=== PATIENT | female | born 1955 | race Caucasian/White ===

== ENCOUNTER 2018-07-01 13:15 | Inpatient (IN) ==
--- NOTE | 2018-07-01 13:20 | Emergency Department Note ---
Disposition Clinical Impression: Recurrent falls, Weakness, Dyspnea on exertion Disposition: Admitted As Inpatient Condition: Fair SOB HPI - General Chief Complaint: ED General Medical Stated Complaint: increasing sob, fall Time Seen by Provider: 07/01/18 13:20 Source: family, EMS Mode of arrival: EMS Limitations: no limitations Nursing Notes Reviewed: Yes Vital Signs Reviewed: Yes - History of Present Illness Patient reports that she has fallen twice today. Both times she has called EMS. EMS helped her up earlier in the day but have brought her in after second episode. She states she had gone out to her car in the passenger side but was unable to get in with her dyspnea on exertion. She tripped on a step on the way back to the house and EMS were again contacted. She is on oxygen at night and as needed during the day. She did not have oxygen when she went to the car and had more shortness of breath and was saturating into the 80s. She reports dyspnea on exertion. She denies increased cough, fevers or chills. She denies chest pain or palpitations. She denies any new lower extremity swelling or injury. She has some chronic swelling as well as scar to her right leg from previous surgical procedures. She denies any change in medicine other than starting medicines for sore right shoulder. She was seen days ago for another fall and is wearing a sling. X-rays of the shoulder were negative. She comes in today stating "I want to get into rehabilitation". Pt Subjective Complaint: shortness of breath (Weakness, recurrent falls) Onset (ago): hour(s) Severity: mild, moderate Consistency/Duration: intermittent Improves with: rest Worsens with: exertion Associated symptoms: Denies: chest pain, pain with inspiration, fever, cough, wheezing, sputum production, orthopnea, lower extremity pain, polyuria, polydipsia, parasthesias, palpitations, hemoptysis, diaphoresis, nausea/vomiting, syncope, abdominal pain, rash Treatment prior to arrival: oxygen Cough present: No - Related Data Home oxygen amount: 2 liters (At night) Home Medications Medication Instructions Recorded Confirmed Acetaminophen [Non-Aspirin] 650 mg PO BID PRN 07/01/18 07/01/18 Ascorbate Calcium [Vitamin C] 500 mg PO DAILY 07/01/18 07/01/18 Atorvastatin [Lipitor] 20 mg PO HS 07/01/18 07/01/18 Cholecalciferol (Vitamin D3) 2,000 unit PO DAILY 07/01/18 07/01/18 [Vitamin D] Duloxetine HCl [Cymbalta] 60 mg PO DAILY 07/01/18 07/01/18 Escitalopram [Lexapro] 20 mg PO DAILY 07/01/18 07/01/18 Fluconazole [Diflucan] 150 mg PO DAILY 07/01/18 07/01/18 Furosemide [Lasix] 40 mg PO DAILY 07/01/18 07/01/18 Gabapentin [Neurontin] 600 mg PO BID 07/01/18 07/01/18 Levothyroxine Sodium [Synthroid] 200 mcg PO DAILY 07/01/18 07/01/18 Quetiapine Fumarate [SEROquel] 100 mg PO HS 07/01/18 07/01/18 Quetiapine Fumarate [SEROquel] 300 mg PO BID 07/01/18 07/01/18 RX: Diclofenac Potassium 50 mg PO BID 07/01/18 07/01/18 RX: Docusate [Colace] 100 mg PO BID PRN 07/01/18 07/01/18 RX: Ferrous Sulfate 325 mg PO TID 07/01/18 07/01/18 RX: Nystatin Cream [Mycostatin 1 appl TP BID 07/01/18 07/01/18 Cream] RX: Ondansetron HCl 4 mg PO Q6H PRN 07/01/18 07/01/18 RX: Polyethylene Glycol 3350 17 gm PO BID 07/01/18 07/01/18 [MiraLAX] RX: clonazePAM [Clonazepam] 1.5 mg PO HS 07/01/18 07/01/18 Allergies Allergy/AdvReac Type Severity Reaction Status Date / Time ibuprofen [From Motrin] AdvReac Depression Verified 06/29/18 11:30 All systems ED: reviewed and negative except as stated. Past Medical History - Past Medical History Attestation: Yes The following information was validated with the patient. Source: patient, old records reviewed, obtained from family, nursing notes re viewed Medical history: Reports: arthritis, DVT, fibromyalgia, hyperlipidemia, thyroid disease, other (Anemia, morbid obesity) Surgical history: Reports: orthopedic, other (4 right legs surgeries) Psychiatric history: Reports: anxiety, depression - Social History Smoking Status: Former smoker Smokeless Tobacco Status: No Alcohol use: Reports: none Drug use: Reports: none Physical Exam - General Limitations: no limitations General appearance: alert, in no apparent distress - Head Head exam: atraumatic, normocephalic, normal inspection - Eye Eye exam: Present: normal appearance, PERRL, EOMI. Absent: conjunctival injection - ENT ENT exam: normal exam, normal oropharynx, mucous membranes moist - Neck Neck exam: Present: normal inspection, full ROM, trachea midline. Absent: tenderness - Chest Chest inspection: Present: normal inspection, symmetric chest wall rise. Absent: tenderness - Respiratory Respiratory exam: Present: normal lung sounds bilaterally. Absent: respiratory distress, wheezes, prolonged expiratory phase - Cardiovascular Cardiovascular exam: Present: regular rate, normal rhythm, normal heart sounds. Absent: tachycardia - Abdominal Exam Abdominal exam: Present: soft, Non-Tender, normal bowel sounds. Absent: tenderness, distention, guarding, rebound, rigidity - Extremities Exam Extremities exam: Present: full ROM, normal capillary refill, pedal edema, other (Patient has some chronic erythema to her legs that she states is no different than usual. The legs are not tender or warm.). Absent: tenderness, calf tenderness - Expanded Lower Extremity Exam Neurovascular/Tendon exam: Present: normal capillary refill. Absent: motor deficit, sensory deficit, tendon deficit Gait: not tested/not observed - Neurological Exam Neurological exam: Present: alert, oriented X3 - Psychiatric Psychiatric exam: Present: normal affect, normal mood - Skin Skin exam: Present: warm, dry, intact, normal color. Absent: cyanosis, diaphoresis, pallor Course Course Narrative: With return of all lab, EKG and imaging, care is discussed with Dr. Bennett at 3 PM. He is agreeable and this patient's observation with social service consultation in the morning. She is continued on her routine medicines. She did not have a list with her at this time and the family will need to provide him so that she can be continued on them. Verbal orders have been obtained for observation. Condition is stable. Vital Signs Temperature 97.5 F L 07/01/18 13:17 Pulse Rate 85 07/01/18 13:17 Respiratory Rate 18 07/01/18 13:17 Blood Pressure 114/50 07/01/18 13:17 O2 Sat by Pulse Oximetry 96 07/01/18 13:17 Temperature 97.4 F L 07/01/18 17:31 Pulse Rate 79 07/01/18 17:31 Respiratory Rate 16 07/01/18 17:31 Blood Pressure 87/58 07/01/18 17:31 O2 Sat by Pulse Oximetry 96 07/01/18 17:31 Oxygen Delivery Oxygen Delivery Nasal Cannula Shortness of Breath/Dyspnea - Differential Diagnosis Likely: acute exacerbation of chronic obstructive airways disease, congestive heart failure, pneumonia, asthma with exacerbation - Medical Records Medical records reviewed: Yes I reviewed the patient's medical records. - Lab Data Lab results reviewed: Yes I reviewed the patient's lab results. Result diagrams: 07/01/18 14:04 07/01/18 14:04 Lab Results 07/01/18 07/01/18 07/01/18 Range/Units 14:04 14:04 14:04 WBC 9.6 (4.3-11.1) K/mcL RBC 3.78 L (3.82-4.97) M/mcL Hgb 12.2 (11.5-15.4) g/dL Hct 37.9 (35.3-44.9) % MCV 100.3 H (83.0-100.0) fL MCH 32.3 (28.0-33.3) pg MCHC 32.2 (31.6-35.5) g/dL RDW 14.6 H (11.5-14.5) % Plt Count 214 (140-400) K/mcL MPV 9.9 (9.4-12.4) fL Seg Neutrophils % 78.0 % Band Neutrophils % 16.0 H (0-4) % Lymphocytes % 6.0 % Neutrophils # 9.0 H (1.6-8.9) K/mcL Lymphocytes # 0.6 (0.6-4.6) K/mcL PT 14.5 H (9.4-12.1) Seconds INR 1.3 APTT 28.9 (26.0-36.0) Seconds Sodium 136 (136-145) mEq/L Potassium 3.1 L (3.5-5.1) mEq/L Chloride 97 L (98-107) mEq/L Carbon Dioxide 29 (23-29) mEq/L BUN 12 (8-23) mg/dL Creatinine 1.01 (0.60-1.20) mg/dL Est GFR ( Amer) > 60 (> 60) Est GFR (Non-Af Amer) 55 L (> 60) BUN/Creatinine Ratio 12 (6-26) Glucose 133 H (70-105) mg/dL Calculated Osmolality 284 (280-300) Lactic Acid (0.5-2.2) mmol/L Calcium 8.6 (8.6-10.3) mg/dL Troponin I < 0.03 (< 0.04) ng/mL B-Natriuretic Peptide (Less than 100) pg/mL 07/01/18 07/01/18 Range/Units 14:04 14:04 WBC (4.3-11.1) K/mcL RBC (3.82-4.97) M/mcL Hgb (11.5-15.4) g/dL Hct (35.3-44.9) % MCV (83.0-100.0) fL MCH (28.0-33.3) pg MCHC (31.6-35.5) g/dL RDW (11.5-14.5) % Plt Count (140-400) K/mcL MPV (9.4-12.4) fL Seg Neutrophils % % Band Neutrophils % (0-4) % Lymphocytes % % Neutrophils # (1.6-8.9) K/mcL Lymphocytes # (0.6-4.6) K/mcL PT (9.4-12.1) Seconds INR APTT (26.0-36.0) Seconds Sodium (136-145) mEq/L Potassium (3.5-5.1) mEq/L Chloride (98-107) mEq/L Carbon Dioxide (23-29) mEq/L BUN (8-23) mg/dL Creatinine (0.60-1.20) mg/dL Est GFR ( Amer) (> 60) Est GFR (Non-Af Amer) (> 60) BUN/Creatinine Ratio (6-26) Glucose (70-105) mg/dL Calculated Osmolality (280-300) Lactic Acid 1.8 (0.5-2.2) mmol/L Calcium (8.6-10.3) mg/dL Troponin I (< 0.04) ng/mL B-Natriuretic Peptide 50 (Less than 100) pg/mL - Radiology Data Radiology results reviewed: Yes I reviewed the patient's radiology results. Single view chest x-ray is performed. This does not demonstrate evidence for infiltrate, effusion, pneumothorax, foreign body or heart failure. The cardiac silhouette is normal. I do not see abnormality to the osseous structures of the chest. This is on my interpretation. Impressions Chest X-Ray 07/01/18 13:21 IMPRESSION: No acute process. D/ / Jaskaran Juarez MD / Jaskaran Juarez MD Interpreting Provider: Jaskaran Juarez MD - EKG Data EKG attestation: Yes I reviewed and interpreted this EKG. EKG shows normal: Reports: sinus rhythm, axis, intervals, QRS complexes, ST-T waves Rate: Reports: normal (83) Interpretation: Reports: no acute changes, nonspecific ST-T wave changes
[2018-07-01] MEDS ORDERED: Ipratropium/Albuterol Neb 3 ML IH ONE (13:21)
[2018-07-01 14:15] LABS: Hematocrit 37.9 % (35.3-44.9); Hemoglobin 12.2 g/dL (11.5-15.4); Mean Corpuscular HGB Conc 32.2 g/dL (31.6-35.5); Mean Corpuscular Hemoglobin 32.3 pg (28.0-33.3); Mean Corpuscular Volume 100.3 fL (83.0-100.0); Mean Platelet Volume 9.9 fL (9.4-12.4); Platelet Count 214 K/mcL (140-400); Red Blood Count 3.78 M/mcL (3.82-4.97); Red Cell Distribution Width 14.6 % (11.5-14.5)
[2018-07-01 14:25] LABS: INR 1.3; Lymphocytes # 0.6 K/mcL (0.6-4.6); Prothrombin Time 14.5 Seconds (9.4-12.1)
[2018-07-01 14:27] LABS: Activated Partial Thrombo Time 28.9 Seconds (26.0-36.0)
[2018-07-01 14:36] LABS: BUN/Creatinine Ratio 12 (6-26); Blood Urea Nitrogen 12 mg/dL (8-23); Calcium 8.6 mg/dL (8.6-10.3); Carbon Dioxide 29 mEq/L (23-29); Chloride 97 mEq/L (98-107); Glucose 133 mg/dL (70-105); Osmolality,Calculated 284 (280-300); Potassium 3.1 mEq/L (3.5-5.1); Sodium 136 mEq/L (136-145); Troponin I < 0.03 ng/mL (< 0.04); eGFR For Non-African Americans 55 (> 60)
--- NOTE | 2018-07-01 17:31 | Electrocardiograph Report ---
[address] [address] Test Date: 2018-07-01 Pat Name: Juju Pacheco Department: [id number] Room: [facility] Gender: F [employer]visor [employer]: [id number] 1955 Requested By: Jonathan Ramos Order Number: [id number] Reading MD: Didi Montejo Measurements Intervals [place] Rate: 83 P: 19 HI: 133 QRS: 6 QRSD: 105 T: 44 QT: 324 QTc: 364 Interpretive Statements SINUS RHYTHM LOW QRS VOLTAGE IN PRECORDIAL LEADS NONSPECIFIC ST-WAVE ABNORMALITY Electronically Signed On 07-01-2018 17:29:44 EST by Didi Montejo
[2018-07-01] MEDS ORDERED: Naloxone 0.4 MG/ML INJ IVP PRN ×2 (18:11→19:26)
[2018-07-01] MEDS ORDERED: Ondansetron ODT 4 MG TAB.RAPDIS PO PRN (19:26)
[2018-07-01] MEDS ORDERED: Acetaminophen 325 MG TABLET PO PRN (19:26)
[2018-07-01] MEDS: clonazePAM 0.5 MG TABLET PO SCH (20:47)
[2018-07-01] MEDS: Gabapentin 300 MG CAPSULE PO SCH (20:48)
[2018-07-01] MEDS: Nystatin Cream 15 GM TUBE TP SCH (20:48)
[2018-07-02] MEDS ORDERED: Furosemide 40 MG TABLET PO SCH (09:00)
[2018-07-02] MEDS: Fluconazole 100 MG TABLET PO SCH (09:40)
[2018-07-02] MEDS: Gabapentin 300 MG CAPSULE PO SCH ×2 (09:43→20:14)
[2018-07-02] MEDS: Nystatin Cream 15 GM TUBE TP SCH ×2 (09:43→20:15)
--- NOTE | 2018-07-02 10:51 | Internal Med History&Physical ---
Date of Encounter: 07/02/18 Time of Encounter: 10:10 Assessment and Plan (1) Cellulitis Current visit: Yes Status: Acute She has significant bandemia. Start IV Ancef with lactobacillus. Qualifiers: Site of cellulitis: extremity Site of cellulitis of extremity: lower extremity Laterality: left Qualified Code(s): L03.116 - Cellulitis of left l ower limb (2) Recurrent falls Current visit: Yes Status: Acute She will have PT and OT evaluations with ongoing intervention. (3) Right shoulder pain Current visit: No Status: Acute She will have an appointment with the orthopedist to further evaluate. Qualifiers: Chronicity: acute Qualified Code(s): M25.511 - Pain in right shoulder (4) Hypothyroidism Current visit: Yes Status: Chronic Check TSH in a.m. Qualifiers: Hypothyroidism type: unspecified Qualified Code(s): E03.9 - Hypothyroidism, unspecified (5) Macrocytosis Current visit: Yes Status: Acute Check B12, folate, and TSH in a.m. (6) Hypokalemia Current visit: Yes Status: Acute Probably secondary to Lasix. Will give supplemental potassium and monitor. (7) Azotemia Current visit: Yes Status: Acute Probable chronic kidney disease stage III. Estimated GFR was 55 on 04/21/2014. Will hold Lasix and give IV fluids and monitor renal indices. Internal Medicine - H&P: HPI Chief complaint: Fall, weakness, left leg redness Admitted From: Emergency Dept Plans for Post Hospital Care: Home History of present illness: Ms. Pacheco is a 62 year old female who came to emergency room after experiencing 2 falls the day of admission and a previous fall 3 days earlier. She states all falls were due to her inability to maneuver steps at her daughter's house where she lives. She denies loss of consciousness or head trauma. She was evaluated in emergency room and admitted to [facility] for ongoing care needs. She reports a fall 3 days previously resulted in injury to her right arm. She has not seen an orthopedist yet. She was told she might have bicep tendon injury. She was placed in an immobilizing sling. She typically uses a cane or walker to ambulate. She reports she was in a rehabilitation facility in [facility] from June 2017 through May 2018 due to a right tibia fracture. She reports 4 surgical procedures were done. She denies other bone joint or muscle disorders. Past Med Surg Social Fam HX - Past Medical History Medical history: arthritis, DVT, fibromyalgia, hyperlipidemia, thyroid disease, other (Anemia, morbid obesity) Additional medical history: Anemia Psychiatric history: anxiety, depression - Past Surgical History Surgical History: orthopedic, other (4 right legs surgeries) Additional surgical history: Right leg - Social History Smoking Status: Former smoker Smokeless Tobacco Status: No Alcohol use: none Drug use: none Internal Medicine - H&P: Meds Acetaminophen [Non-Aspirin] 650 mg PO BID PRN 07/01/18 [History] Ascorbate Calcium [Vitamin C] 500 mg PO DAILY 07/01/18 [History] Atorvastatin [Lipitor] 20 mg PO HS 07/01/18 [History] Cholecalciferol (Vitamin D3) [Vitamin D] 2,000 unit PO DAILY 07/01/18 [History] Diclofenac Potassium 50 mg PO BID 07/01/18 [History] Docusate [Colace] 100 mg PO BID PRN 07/01/18 [History] Duloxetine HCl [Cymbalta] 60 mg PO DAILY 07/01/18 [History] Escitalopram [Lexapro] 20 mg PO DAILY 07/01/18 [History] Ferrous Sulfate 325 mg PO TID 07/01/18 [History] Fluconazole [Diflucan] 150 mg PO DAILY 07/01/18 [History] Furosemide [Lasix] 40 mg PO DAILY 07/01/18 [History] Gabapentin [Neurontin] 600 mg PO BID 07/01/18 [History] Levothyroxine Sodium [Synthroid] 200 mcg PO DAILY 07/01/18 [History] Nystatin Cream [Mycostatin Cream] 1 appl TP BID 07/01/18 [History] Ondansetron HCl 4 mg PO Q6H PRN 07/01/18 [History] Polyethylene Glycol 3350 [MiraLAX] 17 gm PO BID 07/01/18 [History] Quetiapine Fumarate [SEROquel] 100 mg PO HS 07/01/18 [History] Quetiapine Fumarate [SEROquel] 300 mg PO BID 07/01/18 [History] clonazePAM [Clonazepam] 1.5 mg PO HS 07/01/18 [History] Allergy/AdvReac Type Severity Reaction Status Date / Time ibuprofen [From Motrin] AdvReac Depression Verified 06/29/18 11:30 All Systems PM: A 10-system review of systems was performed and is negative for pertinent findings except as documented above in the HPI. Review of systems: Gen.: She states her weight is stable the past few months Cardiovascular: She denies hypertension [place] heart failure angina DVT or pulmonary embolus Respiratory: She smoked from age [age] up to one pack per day. She was told she has "slight COPD" but has not had PFTs. She uses oxygen at bedtime. GI: She denies disorders of her liver gallbladder or exocrine pancreas : She denies hematuria dysuria or kidney stones Neurologic: She has restless leg syndrome. She denies large distribution strokes or seizures. Endocrine: She has hypothyroidism and hyperlipidemia. She denies diabetes. Hematology/oncology: She had right breast cancer 2002 with lumpectomy followed by XRT. She believes she is cancer free. She denies other internal malignancies. She has had anemia in the past. Psychiatric: She has anxiety and depression but denies other mental health issues [place] skeletal: As per history of present illness - Constitutional Vitals: Temp Pulse Resp BP Pulse Ox 97.2 F L 71 16 87/54 97 07/02/18 06:23 07/02/18 06:23 07/02/18 06:23 07/02/18 06:23 07/02/18 06:23 Exam: Gen.: She is a well-developed morbidly obese female lying in bed who appears in no acute distress HEENT: Head is atraumatic and normocephalic. Eyes: EOMI. There is no scleral icterus. Mouth: Mucosa is moist. Neck: Supple and nontender. There is no thyromegaly or adenopathy noted. Heart: Regular without murmurs gallops or ectopics Lungs: No wheezes or crackles are heard. Abdomen: Soft and nontender. No masses or guarding are noted. Extremities: She has multiple healed surgical scars on her right lower leg. The left leg shows significant erythema involving much of the lower leg and foot extending into the thigh. The erythema generally has well demarcated borders. Neurologic: Mental status: She is talkative and a good historian. Cranial nerves: Smile is symmetric. Forehead wrinkles bilaterally. Tongue protrudes midline. EOMI. Motor: There is no pronator drift with left arm. The right arm is in an immobilizing sling and was not tested. Cerebellar: Finger to nose is intact with left arm. Skin: Warm and dry with left leg erythemas described above. Internal Med - H&P Results - Labs CBC & Chem 7: 07/01/18 14:04 07/01/18 14:04 Labs: Short CBC 07/01/18 Range/Units 14:04 WBC 9.6 (4.3-11.1) K/mcL Hgb 12.2 (11.5-15.4) g/dL Hct 37.9 (35.3-44.9) % Plt Count 214 (140-400) K/mcL Neutrophils # 9.0 H (1.6-8.9) K/mcL BMP 07/01/18 14:04 Sodium 136 Potassium 3.1 L Chloride 97 L Carbon Dioxide 29 BUN 12 Creatinine 1.01 Glucose 133 H Calcium 8.6 Cardiac Enzymes 07/01/18 Range/Units 14:04 Troponin I < 0.03 (< 0.04) ng/mL - Impressions ITS Impressions Chest X-Ray 07/01/18 13:21 IMPRESSION: No acute process. D/ / Jaskaran Juarez MD / Jaskaran Juarez MD Interpreting Provider: Jaskaran Juarez MD
[2018-07-02] MEDS: 0.45 % Sodium Chloride w/KCl 20 MEQ/1,000 ML MLS IVC SCH (12:39)
[2018-07-02] MEDS: clonazePAM 0.5 MG TABLET PO SCH (20:14)
[2018-07-02] MEDS: Lactobacillus 1 EACH CAP.SPRINK PO SCH (20:15)
[2018-07-03] MEDS: Gabapentin 300 MG CAPSULE PO SCH ×3 (05:35→20:32)
[2018-07-03] MEDS: 0.45 % Sodium Chloride w/KCl 20 MEQ/1,000 ML MLS IVC SCH ×2 (05:35→22:30)
[2018-07-03] MEDS: *HR* Enoxaparin 40 MG/0.4 ML SYRINGE SQ SCH (05:35)
[2018-07-03 07:05] LABS: Basophils % 0.2 %; Eosinophils # 0.3 K/mcL (0.0-0.6); Eosinophils % 2.9 %; Hematocrit 35.7 % (35.3-44.9); Hemoglobin 11.2 g/dL (11.5-15.4); Immature Granulocytes % 0.6 % (0-4); Lymphocytes % 11.7 %; Mean Corpuscular HGB Conc 31.4 g/dL (31.6-35.5); Monocytes # 0.5 K/mcL (0.0-1.3); Neutrophils # 6.8 K/mcL (1.6-8.9); Platelet Count 242 K/mcL (140-400); Red Cell Distribution Width 14.9 % (11.5-14.5); Segmented Neutrophils % 78.6 %
[2018-07-03 07:25] LABS: BUN/Creatinine Ratio 12 (6-26); Blood Urea Nitrogen 10 mg/dL (8-23); Calcium 8.4 mg/dL (8.6-10.3); Carbon Dioxide 33 mEq/L (23-29); Chloride 101 mEq/L (98-107); Glucose 125 mg/dL (70-105); Magnesium 2.5 mg/dL (1.6-2.6); Osmolality,Calculated 293 (280-300); Potassium 3.2 mEq/L (3.5-5.1); Sodium 141 mEq/L (136-145); eGFR For Non-African Americans > 60 (> 60)
[2018-07-03 07:39] LABS: Thyroid Stimulating Hormone 1.494 mcIU/mL (0.340-5.600)
[2018-07-03] MEDS: Lactobacillus 1 EACH CAP.SPRINK PO SCH ×2 (08:04→20:31)
[2018-07-03] MEDS: Fluconazole 100 MG TABLET PO SCH (08:04)
[2018-07-03] MEDS: Nystatin Cream 15 GM TUBE TP SCH ×2 (08:16→20:32)
--- NOTE | 2018-07-03 15:51 | Internal Med Progress Note ---
Date of Encounter: 07/03/18 Time of Encounter: 15:42 - Assessment and plan (1) Cellulitis Current Visit: Yes Status: Acute Assessment and plan: July 03. WBC remains normal but bandemia has resolved. Continue Ancef with lactobacillus. Qualifiers: Site of cellulitis: extremity Site of cellulitis of extremity: lower extremity Laterality: left Qualified Code(s): L03.116 - Cellulitis of left lower limb (2) Recurrent falls Current Visit: Yes Status: Acute Assessment and plan: July 03. Continue PT and OT intervention (3) Right shoulder pain Current Visit: No Status: Acute Assessment and plan: July 03. As per orthopedist. Qualifiers: Chronicity: acute Qualified Code(s): M25.511 - Pain in right shoulder (4) Hypothyroidism Current Visit: Yes Status: Chronic Assessment and plan: July 03. TSH normal. Continue present dose Synthroid. Qualifiers: Hypothyroidism type: unspecified Qualified Code(s): E03.9 - Hypothyroidism, unspecified (5) Macrocytosis Current Visit: Yes Status: Acute Assessment and plan: July 03. B12, folate, and TSH normal. (6) Hypokalemia Current Visit: Yes Status: Acute Assessment and plan: July 03. Potassium slightly improved to 3.2. Continue supplemental potassium and monitor. (7) Azotemia Current Visit: Yes Status: Acute Assessment and plan: July 03. Creatinine now normal at 0.86. Continue IV fluids and continue to monitor. (8) Anemia Current Visit: Yes Status: Acute Assessment and plan: July 03. Hemoglobin has decreased to 11.2. Suspect due in part IV fluid ad ministration. Recheck labs in a.m. Qualifiers: Anemia type: unspecified type Qualified Code(s): D64.9 - Anemia, unspecified - Subjective Interval history: July 03. She has no new complaints except her left leg itches. - Constitutional Vitals: Temp Pulse Resp BP Pulse Ox 98 F 71 17 105/68 96 07/03/18 10:00 07/03/18 10:00 07/03/18 10:00 07/03/18 10:00 07/03/18 10:00 Exam: She is resting comfortably in bed and appears in no acute distress. The borders of erythema have regressed slightly. The intensity of the erythema is not significantly changed. Her affect is overall cheerful. I reviewed her medications and lab results. Internal Medicine: Result - Labs CBC & Chem 7: 07/03/18 05:30 07/03/18 05:30 Labs: Short CBC 07/03/18 Range/Units 05:30 WBC 8.6 (4.3-11.1) K/mcL Hgb 11.2 L (11.5-15.4) g/dL Hct 35.7 (35.3-44.9) % Plt Count 242 (140-400) K/mcL Neutrophils # 6.8 (1.6-8.9) K/mcL BMP 07/03/18 05:30 Sodium 141 Potassium 3.2 L Chloride 101 Carbon Dioxide 33 H BUN 10 Creatinine 0.86 Glucose 125 H Calcium 8.4 L - ABG Interpretation ABG results: PT/INR, D-dimer PT 14.5 Seconds (9.4-12.1) H 07/01/18 14:04 Consult Discharge Plan - Plan Referrals: Carolee Mercado, [facility] [Primary Care Provider] - 1 week
[2018-07-03] MEDS: Ammonium Lactate 30 APPL/225 GM BOTTLE TP SCH (18:50)
[2018-07-03] MEDS: clonazePAM 0.5 MG TABLET PO SCH (20:31)
[2018-07-04 06:15] LABS: Basophils % 0.4 %; Eosinophils # 0.2 K/mcL (0.0-0.6); Eosinophils % 3.3 %; Hematocrit 35.1 % (35.3-44.9); Hemoglobin 10.9 g/dL (11.5-15.4); Immature Granulocytes % 2.5 % (0-4); Lymphocytes # 1.4 K/mcL (0.6-4.6); Lymphocytes % 19.5 %; Mean Corpuscular HGB Conc 31.1 g/dL (31.6-35.5); Mean Corpuscular Hemoglobin 31.9 pg (28.0-33.3); Mean Corpuscular Volume 102.6 fL (83.0-100.0); Monocytes # 0.5 K/mcL (0.0-1.3); Monocytes % 6.2 %; Neutrophils # 4.9 K/mcL (1.6-8.9); Platelet Count 234 K/mcL (140-400); Red Blood Count 3.42 M/mcL (3.82-4.97); Red Cell Distribution Width 15.1 % (11.5-14.5); Segmented Neutrophils % 68.1 %
[2018-07-04] MEDS: *HR* Enoxaparin 40 MG/0.4 ML SYRINGE SQ SCH (06:17)
[2018-07-04 06:37] LABS: BUN/Creatinine Ratio 14 (6-26); Blood Urea Nitrogen 11 mg/dL (8-23); Calcium 8.4 mg/dL (8.6-10.3); Carbon Dioxide 30 mEq/L (23-29); Chloride 104 mEq/L (98-107); Glucose 104 mg/dL (70-105); Osmolality,Calculated 294 (280-300); Potassium 3.9 mEq/L (3.5-5.1); Sodium 142 mEq/L (136-145); eGFR For Non-African Americans > 60 (> 60)
[2018-07-04 10:04] LABS: % Iron Saturation 22 % (15-50); Iron 52 mcg/dL (50-170); Transferrin 170 mg/dL (203-362)
[2018-07-04] MEDS: Gabapentin 300 MG CAPSULE PO SCH ×3 (10:20→20:13)
[2018-07-04] MEDS: Fluconazole 100 MG TABLET PO SCH (10:21)
[2018-07-04 10:23] LABS: Ferritin 985 ng/mL (10-120)
[2018-07-04] MEDS: Nystatin Cream 15 GM TUBE TP SCH ×2 (10:23→20:16)
[2018-07-04] MEDS: Lactobacillus 1 EACH CAP.SPRINK PO SCH ×2 (10:23→20:12)
[2018-07-04] MEDS: Ammonium Lactate 30 APPL/225 GM BOTTLE TP SCH (10:24)
--- NOTE | 2018-07-04 10:42 | Internal Med Progress Note ---
Date of Encounter: 07/04/18 Time of Encounter: 10:35 - Assessment and plan (1) Cellulitis Current Visit: Yes Status: Acute Assessment and plan: July 03. WBC remains normal but bandemia has resolved. Continue Ancef with lactobacillus. Qualifiers: Site of cellulitis: extremity Site of cellulitis of extremity: lower extremity Laterality: left Qualified Code(s): L03.116 - Cellulitis of left lower limb (2) Recurrent falls Current Visit: Yes Status: Acute Assessment and plan: July 03. Continue PT and OT intervention (3) Right shoulder pain Current Visit: No Status: Acute Assessment and plan: July 03. As per orthopedist. Qualifiers: Chronicity: acute Qualified Code(s): M25.511 - Pain in right shoulder (4) Hypothyroidism Current Visit: Yes Status: Chronic Assessment and plan: July 03. TSH normal. Continue present dose Synthroid. Qualifiers: Hypothyroidism type: unspecified Qualified Code(s): E03.9 - Hypothyroidism, unspecified (5) Macrocytosis Current Visit: Yes Status: Acute Assessment and plan: July 03. B12, folate, and TSH normal. (6) Hypokalemia Current Visit: Yes Status: Acute Assessment and plan: July 03. Potassium slightly improved to 3.2. Continue supplemental potassium and monitor. (7) Azotemia Current Visit: Yes Status: Acute Assessment and plan: July 03. Creatinine now normal at 0.86. Continue IV fluids and continue to monitor. July 04. Creatinine further decreased to 0.81 with estimated GFR greater than 60. IV fluids have been discontinued. Continue to monitor. (8) Anemia Current Visit: Yes Status: Acute Assessment and plan: July 03. Hemoglobin has decreased to 11.2. Suspect due in part IV fluid administration. Recheck labs in a.m. July 04. Hemoglobin minimally decreased to 10.9. Continue to monitor. Qualifiers: Anemia type: unspecified type Qualified Code(s): D64.9 - Anemia, unspecified - Subjective Interval history: July 03. She has no new complaints except her left leg itches. July 04. She has no new complaints - Constitutional Vitals: Temp Pulse Resp BP Pulse Ox 97.3 F L 71 18 113/77 96 07/04/18 07:39 07/03/18 23:47 07/04/18 07:39 07/04/18 07:39 07/04/18 07:39 Exam: She is sitting in a chair at bedside and appears in no acute distress. The margins and intensity of erythema appeared to have slightly decreased since yesterday. Her affect is bright and cheerful. I reviewed her medications and lab results. Internal Medicine: Result - Labs CBC & Chem 7: 07/04/18 05:20 07/04/18 05:20 Labs: Short CBC 07/04/18 Range/Units 05:20 WBC 7.2 (4.3-11.1) K/mcL Hgb 10.9 L (11.5-15.4) g/dL Hct 35.1 L (35.3-44.9) % Plt Count 234 (140-400) K/mcL Neutrophils # 4.9 (1.6-8.9) K/mcL BMP 07/04/18 05:20 Sodium 142 Potassium 3.9 Chloride 104 Carbon Dioxide 30 H BUN 11 Creatinine 0.81 Glucose 104 Calcium 8.4 L - ABG Interpretation ABG results: PT/INR, D-dimer PT 14.5 Seconds (9.4-12.1) H 07/01/18 14:04 Consult Discharge Plan - Plan Referrals: Carolee Mercado, [employer] [Primary Care Provider] - 1 week
[2018-07-04] MEDS: 0.45 % Sodium Chloride w/KCl 20 MEQ/1,000 ML MLS IVC SCH (13:45)
[2018-07-04] MEDS: clonazePAM 0.5 MG TABLET PO SCH (20:15)
[2018-07-05] MEDS: *HR* Enoxaparin 40 MG/0.4 ML SYRINGE SQ SCH (05:57)
[2018-07-05 06:54] VITALS: BP 128/79
[2018-07-05] MEDS: Gabapentin 300 MG CAPSULE PO SCH ×2 (08:10→15:41)
[2018-07-05] MEDS: Fluconazole 100 MG TABLET PO SCH (08:10)
[2018-07-05] MEDS: Lactobacillus 1 EACH CAP.SPRINK PO SCH (08:10)
[2018-07-05] MEDS: Nystatin Cream 15 GM TUBE TP SCH (08:11)
[2018-07-05] MEDS: Ammonium Lactate 30 APPL/225 GM BOTTLE TP SCH (08:14)
--- NOTE | 2018-07-05 15:13 | Discharge Summary ---
Date of Encounter: 07/05/18 Time of Encounter: 14:55 - Discharge Diagnosis (1) Cellulitis Priority: Primary Status: Acute Qualifiers: Site of cellulitis: extremity Site of cellulitis of extremity: lower extremity Laterality: left Qualified Code(s): L03.116 - Cellulitis of left lower limb (2) Recurrent falls Priority: Secondary Status: Acute (3) Right shoulder pain Priority: Secondary Status: Acute Qualifiers: Chronicity: acute Qualified Code(s): M25.511 - Pain in right shoulder (4) Hypothyroidism Priority: Secondary Status: Chronic Qualifiers: Hypothyroidism type: unspecified Qualified Code(s): E03.9 - Hypothyroidism, unspecified (5) Macrocytosis Priority: Secondary Status: Acute (6) Hypokalemia Priority: Secondary Status: Acute (7) Azotemia Priority: Secondary Status: Resolved (8) Anemia Priority: Secondary Status: Acute Qualifiers: Anemia type: unspecified type Qualified Code(s): D64.9 - Anemia, unspecified Hospital course: Ms. Pacheco is a 62 year old female who came to emergency room after experiencing 2 falls the day of admission and a previous fall 3 days earlier. She states all falls were due to her inability to maneuver steps at her daughter's house where she lives. She denies loss of consciousness or head trauma. She was evaluated in emergency room and admitted to [facility] for ongoing care needs. Initial orders were written by the emergency room physician. I saw her on July 02 and performed a history and physical. She was started on IV Ancef with lactobacillus. Bandemia resolved by the following hospital day. She had persistent erythema that gradually lessened in size and intensity during her h ospital stay. She will continue on oral antibiotic and probiotic for 7 additional days at discharge. She had physical therapy and occupational therapy evaluations with ongoing intervention. She will continue with therapy at the SNF. She had an appointment with the orthopedist to evaluate her right shoulder pain. Surgical intervention was not felt to be needed at this time. She will continue with an immobilizer sling and follow up with the orthopedist as directed. TSH returned satisfactory at 1.494. She will continue present dose of Synthroid. Microcytosis workup showed normal B12, folate, and TSH. Supplemental potassium was given hypokalemia resolved. She will continue with supplemental potassium at discharge. Her edema was still present on discharge and she will be started on Bumex 1 mg daily. Labs will be monitored at the [facility]. Azotemia improved with creatinine decreasing to 0.81 the day of discharge. Last be monitored at the [facility]. Anemia testing showed iron 52, transferrin saturation 20%, transferrin 170, ferritin 985, B12 > 1500, and folate 5.8. She was started on ferrous sulfate with vitamin C. On July 05 arrangements were complete for her to be discharged to [facility] for ongoing care needs. She will follow with me there. - Time Spent with Patient Total time spent providing and/or coordinating discharge services: - Discharge Medications Prescriptions: Bumetanide [Bumex] 1 mg PO DAILY 365 Days tablet clonazePAM [Clonazepam] 1.5 mg PO HS 30 Days #45 tab.rapdis Doxycycline 100 mg PO BID 7 Days capsule Home Medications: Acetaminophen [Non-Aspirin] 650 mg PO BID PRN 07/01/18 [History] Atorvastatin [Lipitor] 20 mg PO HS 07/01/18 [History] Cholecalciferol (Vitamin D3) [Vitamin D3] 2,000 unit PO DAILY 07/01/18 [History] Docusate [Colace] 100 mg PO BID PRN 07/01/18 [History] Duloxetine HCl [Cymbalta] 60 mg PO DAILY 07/01/18 [History] Escitalopram [Lexapro] 20 mg PO DAILY 07/01/18 [History] Levothyroxine Sodium [Synthroid] 200 mcg PO DAILY 07/01/18 [History] Nystatin Cream [Mycostatin Cream] 1 appl TP BID 07/01/18 [History] Ondansetron HCl 4 mg PO Q6H PRN 07/01/18 [History] Polyethylene Glycol 3350 [MiraLAX] 17 gm PO BID 07/01/18 [History] Quetiapine Fumarate [Seroquel] 100 mg PO HS 07/01/18 [History] Quetiapine Fumarate [Seroquel] 300 mg PO BID 07/01/18 [History] Ammonium Lactate [Amlactin] 1 appl TP DAILY 7 Days bottle 07/05/18 [Rx] Bumetanide [Bumex] 1 mg PO DAILY 365 Days tablet 07/05/18 [Rx] Doxycycline 100 mg PO BID 7 Days capsule 07/05/18 [Rx] Gabapentin [Neurontin] 300 mg PO BID capsule 07/05/18 [Rx] Lactobacillus [Culturelle] 1 each PO BID 7 Days cap.sprink 07/05/18 [Rx] Potassium Chloride 20 meq PO BID tab.er.prt 07/05/18 [Rx] clonazePAM [Clonazepam] 1.5 mg PO HS 30 Days #45 tab.rapdis 07/05/18 [Rx] Allergies/Adverse Reactions: Allergy/AdvReac Type Severity Reaction Status Date / Time ibuprofen [From Motrin] AdvReac Depression Verified 06/29/18 11:30 Date of admission: 07/02/18 10:33 Primary care physician: Carolee Mercado CNP Consults: 07/01/18 17:12 Consult to Nutrition [CONS] Routine Comment: Consulting Provider: NUTRITION Reason for Dietary Consult: Other 07/01/18 18:11 Consult to Business Intelligence Analyst [CONS] Routine Reason for SW Consult: Potential need for rehabilitation placement 07/02/18 10:30 Consult to Occupational Therapy [CONS] Routine Comment: Evaluate, develop and implement POC Reason for Consult: falls Does patient have active BEDREST order?: No Is patient medically & hemodynamically stable?: Yes Patient assessed for mobility or mobilized this visit?: Yes Consult to Physical Therapy [CONS] Routine Comment: Evaluate, develop and implement POC Reason for Consult: falls Does patient have active BEDREST order?: No Is patient medically & hemodynamically stable?: Yes Patient assessed for mobility or mobilized this visit?: Yes - Constitutional Vitals: Temp Pulse Resp BP Pulse Ox 98.1 F 87 14 128/79 97 07/05/18 06:50 07/05/18 06:50 07/05/18 06:50 07/05/18 06:50 07/05/18 06:50 - Patient Status Disposition: Transfer SNF Condition: Fair - Discharge Instructions - Diet and Activity Activity: as per physical therapy Diet: low fat, low cholesterol
--- NOTE | 2018-07-05 15:21 | Physician Discharge Referral ---
ExtendedCare Referral Info Transfer To: [facility] Provider in Charge: oDnald Provider in Charge after Transfer: PCP (Donadl) - Diagnosis (1) Cellulitis Priority: Primary Status: Acute (2) Recurrent falls Priority: Secondary Status: Acute (3) Right shoulder pain Priority: Secondary Status: Acute (4) Hypothyroidism Priority: Secondary Status: Chronic (5) Macrocytosis Priority: Secondary Status: Acute (6) Hypokalemia Priority: Secondary Status: Acute (7) Azotemia Priority: Secondary Status: Resolved (8) Anemia Priority: Secondary Status: Acute Prognosis: Good Aware of Diagnosis: Patient Aware of Prognosis: Patient - Transfer Medications Prescriptions: Bumetanide [Bumex] 1 mg PO DAILY 365 Days tablet clonazePAM [Clonazepam] 1.5 mg PO HS 30 Days #45 tab.rapdis Doxycycline 100 mg PO BID 7 Days capsule Home Medications: Acetaminophen [Non-Aspirin] 650 mg PO BID PRN 07/01/18 [History] Atorvastatin [Lipitor] 20 mg PO HS 07/01/18 [History] Cholecalciferol (Vitamin D3) [Vitamin D3] 2,000 unit PO DAILY 07/01/18 [History] Docusate [Colace] 100 mg PO BID PRN 07/01/18 [History] Duloxetine HCl [Cymbalta] 60 mg PO DAILY 07/01/18 [History] Escitalopram [Lexapro] 20 mg PO DAILY 07/01/18 [History] Levothyroxine Sodium [Synthroid] 200 mcg PO DAILY 07/01/18 [History] Nystatin Cream [Mycostatin Cream] 1 appl TP BID 07/01/18 [History] Ondansetron HCl 4 mg PO Q6H PRN 07/01/18 [History] Polyethylene Glycol 3350 [MiraLAX] 17 gm PO BID 07/01/18 [History] Quetiapine Fumarate [Seroquel] 100 mg PO HS 07/01/18 [History] Quetiapine Fumarate [Seroquel] 300 mg PO BID 07/01/18 [History] Ammonium Lactate [Amlactin] 1 appl TP DAILY 7 Days bottle 07/05/18 [Rx] Bumetanide [Bumex] 1 mg PO DAILY 365 Days tablet 07/05/18 [Rx] Doxycycline 100 mg PO BID 7 Days capsule 07/05/18 [Rx] Gabapentin [Neurontin] 300 mg PO BID capsule 07/05/18 [Rx] Lactobacillus [Culturelle] 1 each PO BID 7 Days cap.sprink 07/05/18 [Rx] Potassium Chloride 20 meq PO BID tab.er.prt 07/05/18 [Rx] clonazePAM [Clonazepam] 1.5 mg PO HS 30 Days #45 tab.rapdis 07/05/18 [Rx] Allergies/Adverse Reactions: Allergy/AdvReac Type Severity Reaction Status Date / Time ibuprofen [From Motrin] AdvReac Depression Verified 06/29/18 11:30 - Respiratory Orders Oxygen / L per min (2 L/m by nasal cannula as needed to keep sat greater than 90%.) Smoking Cessation: Smoking cessation has been advised. For more information, call the [employer] Quit Line at 0-045-AHVK-NOW. - Lab Orders Lab Orders: Other (include drug levels w/frequency) (CBC with differential, BMP, magnesium level in 1 week.) - Mobility Orders Ambulate - Rehabiliation Orders Rehab Orders: Evaluation for Physical Therapy, Evaluation for Occupational Therapy - Diet Orders Cardiac CERTIFICATION: I certify that the transfer of the above named patient to an Extended Care Facility is necessary for the continuing treatment of the diagnosis listed. The above information is true and accurate reflection of patient's current condition. Confidential - Redisclosure prohibited without a patient's written consent.
== END 2018-07-05 17:37 | DRG 603 ==
LOC: EMEROOPIK 13:15 → INPPIK 13:15
PROVIDERS: ADMIT Internal Medicine; ATTEND Internal Medicine